=== PATIENT | female | born 1990 | race African-American/Black ===

== ENCOUNTER 2024-08-17 13:13 | Emergency (ER) | payer OTHER ==
[2024-08-17] MEDS: Ondansetron 4 MG Tab.DIS PO ONE (14:12)
[2024-08-17 15:04] LABS: CORONAVIRUS COVID-19 NAA NEGATIVE (NEGATIVE); INFLUENZA A NAA NEGATIVE (NEGATIVE); RESPIRATORY SYNCYTIAL VIR NAA NEGATIVE (NEGATIVE)
[2024-08-17] MEDS: Acetaminophen 325 MG Tab PO ONE (16:36)
== END 2024-08-17 16:40 | disposition home or self-care (01) ==
LOC: JD.ED 13:13
DX: B34.9 Viral infection, unspecified (principal); E66.9 Obesity, unspecified; Z79.899 Other long term (current) drug therapy; Z68.33 Body mass index [BMI] 33.0-33.9, adult
CPT/HCPCS: 0241U; 99284; A9270; 99283